=== PATIENT | male | born 1960 | race Caucasian/White ===

== ENCOUNTER 2025-04-19 12:42 | Emergency (ER) | payer OTHER ==
[2025-04-19] MEDS ORDERED: Magnesium 2 GM/50 ML BAG (IN WATER) ONE (14:32)
[2025-04-19 15:55] LABS: #Basophils 0.04 10x3/uL (0.0-0.2); #Eosinophils 0.04 10x3/uL (0.0-0.7); #Monocytes 0.45 10x3/uL (0.11-0.59); #Neutrophils 3.18 10x3/uL (1.40-6.50); %Basophils 0.8 % (0.0-1.0); %Eosinophils 0.8 % (0.0-10.0); %Lymphocytes 28.2 % (21.0-51.0); %Monocytes 8.7 % (0.0-10.0); %Neutrophils 61.3 % (42.0-75.0); Hematocrit 41.9 % (42.0-52.0); Hemoglobin 14.0 g/dL (14.0-18.0); Mean Corpuscular Hemoglobin 28.0 pg (27.0-31.0); Mean Corpuscular Volume 83.8 fL (78.0-98.0); Platelet Count 208 10x3/uL (130-400); Red Blood Cell (RBC) Count 5.00 mill/uL (4.70-6.10); White Blood Cell (WBC) Count 5.18 10x3/uL (4.8-10.8)
[2025-04-19 16:54] LABS: Acetaminophen Less than 10 mcg/mL (Less than 10); Lipase 16 U/L (8-78); Salicylate Less than 8.0 mg/dL (Less than 8.0)
[2025-04-19 16:58] LABS: ALT (SGPT) 48 U/L (Less than 45); AST (SGOT) 26 U/L (11-34); Albumin 3.8 g/dL (3.1-4.5); Alkaline Phosphatase 100 U/L (40-110); Anion Gap 17 mmol/L (10-20); BUN (Urea Nitrogen) 20 mg/dL (8.4-25.7); Bilirubin, Total 0.3 mg/dL (0.3-1.2); CK (CPK) 62 U/L (30-200); Calc. Creatinine Clearance 0 mL/min (70-130); Calcium 9.6 mg/dL (7.8-10.44); Carbon Dioxide 26 mmol/L (23-31); Chloride 96 mmol/L (98-107); Globulin 3.1 g/dL (2.4-3.5); Glucose 508 mg/dL (80-115); Potassium 4.8 mmol/L (3.5-5.1); Sodium 134 mmol/L (136-145)
[2025-04-19 17:19] LABS: Bacteria/HPF None Seen HPF (None Seen); CAUTI Indications for Culture Dysuria,urgency,freq; Glucose, Urine (Dipstick) Greater than 1000 mg/dL (Negative); Leukocyte Negative Leu/uL (Negative); Protein, Urine (Dipstick) Negative (Neg-Trace); RBC/HPF 0-3 HPF (0-3); Specific Gravity, Urine 1.031 (1.002-1.036); WBC/HPF 0-3 HPF (0-3)
[2025-04-19 17:21] LABS: Urine Culture Reflex No No
[2025-04-19 17:32] LABS: Cocaine Metabolite Screen Negative (Negative); THC/Cannabinoid Screen Negative (Negative); Tricyclic Screen PRELIM POSITIVE (Negative)
== END 2025-04-19 18:49 | disposition home or self-care (01) ==
LOC: ERS 12:42
DX: E11.65 Type 2 diabetes mellitus with hyperglycemia (principal); I11.0 Hypertensive heart disease with heart failure; I50.9 Heart failure, unspecified; Z79.899 Other long term (current) drug therapy; Z95.5 Presence of coronary angioplasty implant and graft
CPT/HCPCS: 36415; 36416; 71045; 80053; 80306; 80307; 81001; 82550; 83690; 84484; 85025; 93005; 96365; 96375; J1815; J3411; J3475

== ENCOUNTER 2025-05-20 15:27 | Emergency (ER) | payer OTHER ==
[2025-05-20 17:42] LABS: Bacteria/HPF None Seen HPF (None Seen); CAUTI Indications for Culture Alt mental st,lethar; Glucose, Urine (Dipstick) 500 mg/dL (Negative); Leukocyte Negative Leu/uL (Negative); Protein, Urine (Dipstick) 10 mg/dL (Neg-Trace); RBC/HPF 0-3 HPF (0-3); Specific Gravity, Urine 1.027 (1.002-1.036); WBC/HPF 0-3 HPF (0-3)
[2025-05-20 17:43] LABS: Urine Culture Reflex No No
[2025-05-20 19:59] LABS: Actual Bicarbonate (HCO3v) 27.9 mEq/L (22-28); Base Excess 2.1 mEq/L (-2.0 to +3.0); Calcium, Ionized (venous) 1.22 mmol/L (1.16-1.32); Chloride (VBG) 102 mmol/L (98-106); Hematocrit-VBG 40 % (42.0-52.0); Hemoglobin (Hb) 13.5 g/dL (13.1-17.2); Potassium (VBG) 4.24 mmol/L (3.70-5.30); Sodium 138 mmol/L (133-146)
[2025-05-20 20:02] LABS: #Basophils 0.04 10x3/uL (0.0-0.2); #Eosinophils 0.10 10x3/uL (0.0-0.7); #Monocytes 0.60 10x3/uL (0.11-0.59); #Neutrophils 3.15 10x3/uL (1.40-6.50); %Basophils 0.7 % (0.0-1.0); %Eosinophils 1.8 % (0.0-10.0); %Lymphocytes 31.2 % (21.0-51.0); %Monocytes 10.6 % (0.0-10.0); %Neutrophils 55.5 % (42.0-75.0); Hematocrit 39.1 % (42.0-52.0); Hemoglobin 12.4 g/dL (14.0-18.0); Mean Corpuscular Hemoglobin 27.6 pg (27.0-31.0); Mean Corpuscular Volume 86.9 fL (78.0-98.0); Platelet Count 194 10x3/uL (130-400); Red Blood Cell (RBC) Count 4.50 mill/uL (4.70-6.10); White Blood Cell (WBC) Count 5.67 10x3/uL (4.8-10.8)
[2025-05-20 20:44] LABS: ALT (SGPT) 16 U/L (Less than 45); AST (SGOT) 29 U/L (11-34); Albumin 3.5 g/dL (3.1-4.5); Alkaline Phosphatase 71 U/L (40-110); Anion Gap 11 mmol/L (10-20); BUN (Urea Nitrogen) 13 mg/dL (8.4-25.7); Bilirubin, Total 0.3 mg/dL (0.3-1.2); CK (CPK) 133 U/L (30-200); Calc. Creatinine Clearance 0 mL/min (70-130); Calcium 9.1 mg/dL (7.8-10.44); Carbon Dioxide 27 mmol/L (23-31); Chloride 104 mmol/L (98-107); Globulin 3.0 g/dL (2.4-3.5); Glucose 184 mg/dL (80-115); Lipase 18 U/L (8-78); Potassium 4.6 mmol/L (3.5-5.1); Sodium 137 mmol/L (136-145)
== END 2025-05-20 23:43 | disposition home or self-care (01) ==
LOC: ERS 15:27
DX: S70.02XA Contusion of left hip, initial encounter (principal); E86.0 Dehydration; R29.6 Repeated falls; Z86.73 Personal history of transient ischemic attack (TIA), and cerebral infarction without residual deficits; E11.9 Type 2 diabetes mellitus without complications; I10 Essential (primary) hypertension; Z95.5 Presence of coronary angioplasty implant and graft; W19.XXXA Unspecified fall, initial encounter
CPT/HCPCS: 70450; 71045; 72170; 80053; 81001; 82010; 82550; 82805; 83690; 84484; 85025; 87040; 93005; 96360